=== PATIENT | female | born 1935 | race Caucasian/White ===

== ENCOUNTER 2018-10-04 06:11 | Inpatient (IN) | payer MEDICARE, OTHER ==
[~2018-10-04] VITALS: Ht 157.5 cm; Wt 68.9 kg
[2018-10-04] MEDS ORDERED: SODIUM CHLORIDE 0.9% 1,000 ML IV ONE (06:36)
[2018-10-04] MEDS ORDERED: BACITRACIN ZINC OINT UDPKT TOP ONE (06:45)
[2018-10-04] MEDS ORDERED: LIDOCAINE 1%/EPI 1:100,000 10 ML VIAL IJ ONE (06:45)
[2018-10-04] MEDS ORDERED: TETANUS, DIPHTHERIA, PERTUSSIS VAC/PF 0.5ML (>7YR OLD) IM ONE (06:45)
[2018-10-04] MEDS ORDERED: LORAZEPAM 2MG/ML CPJ IV ONE (07:45)
[2018-10-04] MEDS ORDERED: LORAZEPAM 2MG/ML CPJ ONE (07:50)
[2018-10-04 08:18] LABS: BASOPHILS % 0.6 % (0.0-2.0); EOSINOPHILS % 0.6 % (0.0-5.0); HEMATOCRIT. 34.3 % (36.0-48.0); HEMOGLOBIN. 11.5 g/dL (12.0-16.0); LYMPHOCYTES % 22.5 % (20.0-50.0); MEAN CORPUSCULAR HEMOGLOBIN 30.7 pg (28.0-32.0); MEAN CORPUSCULAR VOLUME 91.6 fL (81.0-99.0); MEAN PLATELET VOLUME 9.1 fl (7.4-10.4); MONOCYTES % 8.5 % (2.0-8.0); NEUTROPHILS % 67.8 % (40.0-76.0); PLATELET 384 x1000/uL (130-400); RED BLOOD CELL COUNT 3.74 mill/uL (4.2-5.4); RED CELL DISTRIBUTION WIDTH 14.1 % (11.6-14.6)
[2018-10-04 08:27] LABS: CHLORIDE 87 mEq/L (98-107)
[2018-10-04] MEDS ORDERED: LIDOCAINE HCL/EPINEPHRINE 1%-EPI 1:100,000 20 ML VIAL IJ ONE (10:15)
[2018-10-04] MEDS ORDERED: ACETAMINOPHEN 650MG SUPP PR PRN (12:00)
[2018-10-04] MEDS ORDERED: GUAIFENESIN 200MG/10ML SUGAR FREE UDC PO PRN (12:00)
[2018-10-04] MEDS ORDERED: PANTOPRAZOLE SODIUM 40 MG/VIAL IV SCH (12:00)
[2018-10-04] MEDS ORDERED: IPRATROPIUM/ALBUTEROL 0.5-3(2.5)MG/3ML NEB INH PRN (12:00)
[2018-10-04] MEDS ORDERED: ONDANSETRON HCL 4MG/2ML INJ IV PRN (12:00)
[2018-10-04] MEDS ORDERED: PIPERACILLIN/TAZ 3.375G PREMIX 50 ML IV SCH (12:00)
[2018-10-04] MEDS ORDERED: MAGNESIUM/ALUMINUM HYDROXIDE/SIMETHICONE 30ML UDC PO PRN (12:00)
[2018-10-04] MEDS ORDERED: DOCUSATE SODIUM 100MG CAPSULE PO PRN (12:00)
[2018-10-04] MEDS ORDERED: ACETAMINOPHEN 325MG TABLET PO PRN (12:00)
[2018-10-04] MEDS: SODIUM CHLORIDE 0.9% 1,000 ML IV SCH (12:00)
[2018-10-04] MEDS ORDERED: HYDROCODONE/ACETAMINOPHEN 5/325MG TABLET PO PRN (12:00)
[2018-10-04 12:44] LABS: BG BASE EXCESS 2.6 mmol/L (-2.0-2.0); BG CARBOXYHEMOGLOBIN 0.2 % (0.5-1.5); BG DEOXYHEMOGLOBIN 6.1 % (0.0-5.0); BG FRACTION INSPIRED OXYGEN 21; BG HCO3 ACT 26.5 mmol/L (22.0-26.0); BG METHEMOGLOBIN 0.3 % (0.0-1.5); BG OXYGEN SATURATION 93.9 % (92.0-98.5); BG OXYHEMOGLOBIN 93.4 % (94.0-97.0); BG PCO2 38.3 mmHg (35.0-45.0); BG PH 7.458 (7.350-7.450); BG PO2 69.1 mmHg (75.0-100.0); BG SAMPLE SITE RIGHT RADIAL; BG TOTAL HEMOGLOBIN 10.9 g/dL (12.0-18.0); BG VENT MODE ROOM AIR
[2018-10-04 13:40] LABS: CLARITY URINE CLOUDY (CLEAR); COLOR URINE YELLOW (YELLOW); KETONES URINE NEGATIVE (NEGATIVE); LEUKOCYTE ESTERASE URINE 3+ (NEGATIVE); NITRITE URINE NEGATIVE (NEGATIVE); OCCULT BLOOD URINE TRACE (NEGATIVE); PH URINE 7.5 (4.5-8.0); PROTEIN URINE NEGATIVE (NEGATIVE); SPECIFIC GRAVITY URINE 1.008 (1.005-1.030); UROBILINOGEN URINE 0.2 E.U./dL (0.2-1.0)
[2018-10-04] MEDS ORDERED: CEFTRIAXONE 1 G PREMIX 50 ML IV ONE (14:15)
[2018-10-04 14:28] LABS: *BARBITURATES SCREEN URINE NEGATIVE (NEGATIVE); OPIATES URINE SCREEN NEGATIVE (NEGATIVE); PHENCYCLIDINE URINE SCREEN NEGATIVE (NEGATIVE)
[2018-10-04 14:29] LABS: *AMPHETAMINES SCREEN URINE NEGATIVE (NEGATIVE); *BENZODIAZEPINES SCREEN URINE NEGATIVE (NEGATIVE); *COCAINE SCREEN URINE NEGATIVE (NEGATIVE); CANNABINOID URINE SCREEN NEGATIVE (NEGATIVE); METHADONE URINE SCREEN NEGATIVE (NEGATIVE)
[2018-10-04 15:31] LABS: CHLORIDE 96 mEq/L (98-107)
[2018-10-04 15:40] LABS: CREATINE KINASE 111 IU/L (26-192); CREATINE KINASE MB FRACTION < 1.0 ng/mL (0.5-3.6)
[2018-10-04 23:17] LABS: CREATINE KINASE 104 IU/L (26-192)
[2018-10-04 23:18] LABS: CREATINE KINASE MB FRACTION < 1.0 ng/mL (0.5-3.6)
[2018-10-05] VITALS (9 sets, daily range): BP systolic 124–158; BP diastolic 48–61
[2018-10-05] MEDS ORDERED: NA PHOS,M-B/NA PHOS,DI-BA ENEMA 118ML PR PRN (03:22)
[2018-10-05] MEDS ORDERED: HYDRALAZINE 20MG/ML VIAL IV PRN (03:24)
[2018-10-05] MEDS ORDERED: VANCOMYCIN 1250MG in DEXTROSE 5% WATER 250ML IV SCH (04:00)
[2018-10-05] MEDS: PIPERACILLIN/TAZ 3.375G PREMIX 50 ML IV SCH ×4 (04:33→22:33)
[2018-10-05] MEDS: SODIUM CHLORIDE 0.9% 1,000 ML IV SCH ×2 (04:34→08:00)
[2018-10-05] MEDS: PANTOPRAZOLE SODIUM 40 MG/VIAL IV SCH (08:34)
[2018-10-05 11:02] LABS: CHLORIDE 97 mEq/L (98-107)
[2018-10-05 11:07] LABS: BASOPHILS % 0.6 % (0.0-2.0); EOSINOPHILS % 2.8 % (0.0-5.0); HEMATOCRIT. 32.7 % (36.0-48.0); HEMOGLOBIN. 10.6 g/dL (12.0-16.0); LYMPHOCYTES % 21.7 % (20.0-50.0); MEAN CORPUSCULAR HEMOGLOBIN 30.7 pg (28.0-32.0); MEAN CORPUSCULAR VOLUME 94.4 fL (81.0-99.0); NEUTROPHILS % 63.9 % (40.0-76.0); PLATELET 340 x1000/uL (130-400); RED BLOOD CELL COUNT 3.46 mill/uL (4.2-5.4); RED CELL DISTRIBUTION WIDTH 14.1 % (11.6-14.6)
[2018-10-05 11:09] LABS: LDL CHOLESTEROL 59 mg/dL (5-100)
[2018-10-05 11:11] LABS: HDL CHOLESTEROL 46 mg/dL (40-59); T4 FREE 1.35 ng/dL (0.76-1.46)
[2018-10-05] MEDS ORDERED: VANCOMYCIN 750 MG PREMIX 150 ML IV SCH ×2 (16:00→23:00)
[2018-10-05] MEDS: LORAZEPAM 0.5MG TABLET PO PRN (21:48)
[2018-10-05] MEDS: DIPHENHYDRAMINE 50MG/ML VIAL IV PRN (23:32)
[2018-10-06] VITALS (7 sets, daily range): BP systolic 131–168; BP diastolic 54–76
[2018-10-06] MEDS: SODIUM CHLORIDE 0.9% 1,000 ML IV SCH ×3 (04:00→14:00)
[2018-10-06] MEDS: PIPERACILLIN/TAZ 3.375G PREMIX 50 ML IV SCH ×2 (05:14→11:34)
[2018-10-06] MEDS: PANTOPRAZOLE SODIUM 40 MG/VIAL IV SCH ×2 (09:00→09:40)
[2018-10-06 13:34] LABS: HEMATOCRIT 28.7 % (36.0-48.0); HEMOGLOBIN 9.7 g/dL (12.0-16.0); MEAN CORPUSCULAR HEMOGLOBIN 31.8 pg (28.0-32.0); MEAN CORPUSCULAR VOLUME 93.8 fL (81.0-99.0); PLATELET 371 x1000/uL (130-400); RED BLOOD CELL COUNT 3.06 mill/uL (4.2-5.4); RED CELL DISTRIBUTION WIDTH 13.9 % (11.6-14.6)
[2018-10-06 13:44] LABS: CHLORIDE 100 mEq/L (98-107)
[2018-10-06] MEDS: LORAZEPAM 0.5MG TABLET PO PRN (15:22)
[2018-10-06] MEDS ORDERED: CARVEDILOL 3.125 MG TABLET PO NR (16:06)
[2018-10-06] MEDS ORDERED: LEVOFLOXACIN 500MG PREMIX 100 ML IV SCH (18:00)
[2018-10-06] MEDS: DIPHENHYDRAMINE 50MG/ML VIAL IV PRN (21:33)
[2018-10-06] MEDS: CARVEDILOL 3.125 MG TABLET PO SCH (21:33)
[2018-10-06] MEDS ORDERED: IOHEXOL-350 100 ML BOTTLE ONE (23:50)
[2018-10-07] VITALS: BP 154/55
[2018-10-07] MEDS: DIPHENHYDRAMINE 50MG/ML VIAL IV PRN (02:04)
[2018-10-07] MEDS: LORAZEPAM 0.5MG TABLET PO PRN (02:04)
[2018-10-07 08:00] VITALS: BP 139/47
[2018-10-07] MEDS: PANTOPRAZOLE SODIUM 40 MG/VIAL IV SCH (09:26)
[2018-10-07] MEDS: CARVEDILOL 3.125 MG TABLET PO SCH ×2 (09:27→21:00)
[2018-10-07] MEDS: SODIUM CHLORIDE 0.9% 1,000 ML IV SCH ×2 (09:29)
[2018-10-07 12:51] LABS: CHLORIDE 102 mEq/L (98-107)
[2018-10-07 12:59] VITALS: BP 127/50
[2018-10-07 17:09] VITALS: BP 131/67
[2018-10-07] MEDS: LEVOFLOXACIN 250MG PREMIX 50 ML IV SCH (18:08)
[2018-10-07 20:00] VITALS: BP 99/66
[2018-10-08] VITALS: BP 153/63
[2018-10-08 06:39] LABS: CHLORIDE 103 mEq/L (98-107); HEMATOCRIT 29.5 % (36.0-48.0); HEMOGLOBIN 9.9 g/dL (12.0-16.0); MEAN CORPUSCULAR HEMOGLOBIN 31.3 pg (28.0-32.0); MEAN CORPUSCULAR VOLUME 92.9 fL (81.0-99.0); PLATELET 463 x1000/uL (130-400); RED BLOOD CELL COUNT 3.17 mill/uL (4.2-5.4); RED CELL DISTRIBUTION WIDTH 14.5 % (11.6-14.6)
[2018-10-08 08:00] VITALS: BP 169/73
[2018-10-08] MEDS: CARVEDILOL 3.125 MG TABLET PO SCH ×2 (09:22→21:09)
[2018-10-08] MEDS: PANTOPRAZOLE SODIUM 40 MG/VIAL IV SCH (09:22)
[2018-10-08] MEDS ORDERED: DEXTROSE 50% WATER 50ML SYRINGE IV PRN (11:30)
[2018-10-08 11:42] VITALS: BP 159/48
[2018-10-08] MEDS: BLOOD SUGAR DIAGNOSTIC STRIP TEST SCH ×3 (11:48→21:13)
[2018-10-08] MEDS: INSULIN LISPRO 100 UNITS/ML SUBCUT SCH ×3 (11:48→21:16)
[2018-10-08] MEDS: AMLODIPINE 5MG TABLET PO SCH (11:54)
[2018-10-08 16:07] VITALS: BP 164/63
[2018-10-08] MEDS: LEVOFLOXACIN 250MG PREMIX 50 ML IV SCH (18:36)
[2018-10-08] MEDS ORDERED: DEXT 5%/0.45% NACL 1000ML 1,000 ML IV SCH ×2 (19:00)
[2018-10-08 20:00] VITALS: BP 167/57
[2018-10-08] MEDS ORDERED: INFLUENZA VIRUS VACCINE(AFLURIA) 0.5ML SYR IM ONE (23:15)
[2018-10-08] MEDS ORDERED: PNEUMOCOCCAL 23-VAL P-SAC VAC 0.5 ML IM ONE (23:30)
[2018-10-09] VITALS: BP 143/51
[2018-10-09 04:00] VITALS: BP 143/65
[2018-10-09] MEDS: BLOOD SUGAR DIAGNOSTIC STRIP TEST SCH ×2 (06:37→12:10)
[2018-10-09] MEDS: INSULIN LISPRO 100 UNITS/ML SUBCUT SCH ×2 (06:37→14:29)
[2018-10-09 07:27] LABS: HEMATOCRIT 30.9 % (36.0-48.0); HEMOGLOBIN 10.2 g/dL (12.0-16.0); PLATELET 473 x1000/uL (130-400); RED BLOOD CELL COUNT 3.29 mill/uL (4.2-5.4); RED CELL DISTRIBUTION WIDTH 14.7 % (11.6-14.6)
[2018-10-09 08:00] VITALS: BP 133/76
[2018-10-09] MEDS ORDERED: FAMOTIDINE 20MG/2ML VIAL IV SCH (09:00)
[2018-10-09] MEDS: AMLODIPINE 5MG TABLET PO SCH (09:57)
[2018-10-09] MEDS: CARVEDILOL 3.125 MG TABLET PO SCH (09:58)
[2018-10-09 11:22] LABS: CHLORIDE 104 mEq/L (98-107)
[2018-10-09 12:56] VITALS: BP_SYST 133; BP_SYST 162; BP_DIAS 61; BP_DIAS 76
== END 2018-10-09 14:45 | DRG 871 ==
LOC: ER 06:11 → 3WST 10:39 → EDBEDREQ 10:41 → EDBEDREQTM 10:41 → SUPCPDRO 12:00 → ENRESERV 21:20 → CANRESERV 21:20 → EDBEDREQTM 22:12 → EDBEDREQSVC 22:12 → ENRESERV 10-05 01:50 → 8WST 10-05 16:43
PROVIDERS: ADMIT Internal Medicine; ATTEND Internal Medicine
PROC: 0HQ0XZZ Repair Scalp Skin, External Approach (ICD-10-PCS; principal; 2018-10-04)
DX: A41.9 Sepsis, unspecified organism (principal); G92 Toxic encephalopathy; N39.0 Urinary tract infection, site not specified; E87.1 Hypo-osmolality and hyponatremia; G90.8 Other disorders of autonomic nervous system; E86.0 Dehydration; R74.0 Nonspecific elevation of levels of transaminase and lactic acid dehydrogenase [LDH]; B96.20 Unspecified Escherichia coli [E. coli] as the cause of diseases classified elsewhere; R91.8 Other nonspecific abnormal finding of lung field; K83.8 Other specified diseases of biliary tract; S89.92XA Unspecified injury of left lower leg, initial encounter; R16.0 Hepatomegaly, not elsewhere classified; M48.02 Spinal stenosis, cervical region; R26.9 Unspecified abnormalities of gait and mobility; D18.09 Hemangioma of other sites; S00.03XA Contusion of scalp, initial encounter; E66.9 Obesity, unspecified; D64.9 Anemia, unspecified; I10 Essential (primary) hypertension; K80.20 Calculus of gallbladder without cholecystitis without obstruction; R79.1 Abnormal coagulation profile; E88.09 Other disorders of plasma-protein metabolism, not elsewhere classified; W18.30XA Fall on same level, unspecified, initial encounter; F03.90 Unspecified dementia, unspecified severity, without behavioral disturbance, psychotic disturbance, mood disturbance, and anxiety; E11.9 Type 2 diabetes mellitus without complications; Y93.89 Activity, other specified; Y92.098 Other place in other non-institutional residence as the place of occurrence of the external cause; Y99.8 Other external cause status; Z91.81 History of falling; Z78.1 Physical restraint status; Z68.27 Body mass index [BMI] 27.0-27.9, adult
CPT/HCPCS: 12002; 36415; 36600; 70498; 71045; 71275; 72170; 73560; 76700; 80048; 80061; 80076; 80305; 82270; 82375; 82378; 82550; 82553; 82805; 82962; 83036; 83605; 84439; 84443; 84484; 85027; 85379; 86301; 86850; 86900; 87077; 87186; 87804; 90471; 90686; 90715; 90732; 93005; 93306; 93880; 93970; 96361; 96365; 96366; 96375; 97116; 97162; 97530; 99291; C9113; J0360; J0696; J1200; J1815; J1956; J2060; J2543; J3370; J3490; J7030; J7060; Q9967